=== PATIENT | male | born 1975 | race Caucasian/White ===

== ENCOUNTER 2022-01-22 06:34 | Outpatient (CLI) | payer BC, OTHER ==
[~2022-01-22] VITALS: Ht 170 cm; Wt 125.9 kg
[2022-01-22] MEDS ORDERED: CETI10CA PO (11:33)
[2022-01-22] MEDS ORDERED: CETI10TA17 PO (11:33)
== END 2022-01-22 11:55 ==
LOC: PREOP 06:34
PROVIDERS: ATTEND Surgery
DX: Z01.818 Encounter for other preprocedural examination (principal)

== ENCOUNTER 2022-02-03 12:24 | Day surgery (SDC) | payer BC, OTHER ==
[~2022-02-03] VITALS: Ht 170.2 cm; Wt 125.7 kg
[~2022-02-03 12:24] MED LIST: CETI10CA PO; CETI10TA17 PO
[2022-02-03] MEDS ORDERED: LACTATED RINGERS 1,000 ML IV STA (12:27)
[2022-02-03 12:40] VITALS: BP 142/97
--- NOTE | 2022-02-03 12:57 | Progress Note-Pre Operative ---
Pre-Operative Progress Note H&P Reviewed The H&P was reviewed, patient examined and no changes noted. Date Seen by Provider: Feb 03, 2022 Time Seen by Provider: 12:56 Date H&P Reviewed: Feb 03, 2022 Time H&P Reviewed: 12:56 Pre-Operative Diagnosis: bright red blood per rectum MARIAA MAYNARD DO Feb 03, 2022 12:57
[2022-02-03] MEDS ORDERED: PROPOFOL INJECTION 50 ML IV ONE (13:40)
[2022-02-03 14:15] VITALS: BP 116/73
--- NOTE | 2022-02-03 14:17 | Anesthesia-General Post-Op ---
MAC Patient Condition Mental Status/LOC: Same as Preop Cardiovascular: Satisfactory Nausea/Vomiting: Absent Respiratory: Satisfactory Pain: Controlled Complications: Absent Post Op Complications Complications None Follow Up Care/Instructions Patient Instructions None needed. Anesthesiology Discharge Order Discharge Order Patient is doing well, no complaints, stable vital signs, no apparent adverse anesthesia problems. No complications reported per nursing. MADDISON LI CRNA Feb 03, 2022 14:17
--- NOTE | 2022-02-03 14:17 | Progress Note-Post Operative ---
Post-Operative Progess Note Surgeon (s)/Cold Header (s) Surgeon MARIAA MAYNARD DO Cold Header: na Pre-Operative Diagnosis bright red blood per rectum Post-Operative Diagnosis colon polyps Procedure & Operative Findings Date of Procedure 02/03/22 Procedure Performed/Findings colonoscopy c hot bx polypectomy x 4 Anesthesia Type per account technician Estimated Blood Loss Estimated blood loss (mL): none Specimens/Packing Specimens Removed colon polyps MARIAA MAYNARD DO Feb 03, 2022 14:17
--- NOTE | 2022-02-03 14:18 | Discharge Inst-Simple/Standard ---
Discharge Inst-Standard Patient Instructions/Follow Up Plan of Care/Instructions/FU: 2 weeks Daksha Activity as Tolerated: Yes Discharge Diet: Regular Diet MARIAA MAYNARD DO Feb 03, 2022 14:18
[2022-02-03 14:20] VITALS: BP 128/75
[2022-02-03 14:25] VITALS: BP 122/82
[2022-02-03 14:50] VITALS: BP 151/112
[2022-02-03 14:59] VITALS: BP 151/112
--- NOTE | 2022-02-03 18:37 | OPERATIVE REPORT ---
DATE OF SERVICE: 02/03/2022 PREOPERATIVE DIAGNOSIS: Bright red blood per rectum. POSTOPERATIVE DIAGNOSIS: Colon polyps. PROCEDURES PERFORMED: Colonoscopy with hot biopsy polypectomy x4. SURGEON: Mariaa Crooks DO. ANESTHESIA: Per SEWING MACHINE OPERATOR ZIPPER. ESTIMATED BLOOD LOSS: None. COMPLICATIONS: None. INDICATIONS FOR PROCEDURE: The patient is a 46-year-old male with some bright red blood per rectum. He understands risks and benefits of the procedure and wishes to proceed. Consent was signed in the chart. DESCRIPTION OF PROCEDURE: The patient was taken to the endoscopy suite and placed in the left lateral recumbent position. Timeout was performed. Digital rectal exam was performed. No palpable polyps, masses or ulcerations. Slight hemorrhoidal disease. Scope was inserted in the rectum and advanced all the way to cecum with minimal difficulty. Prep was adequate with irrigation and suction. Scope was slowly retracted back. No polyps, masses or ulcerations within the cecum and ascending colon. In the transverse colon, three small polyps were present, which hot biopsy polypectomy was performed. Scope was then continuously retracted back into the descending colon without any further pathology. Once in the sigmoid, another small polyp was present, which hot biopsy polypectomy was performed. Scope was continuously and retracted back into the rectum, where it was also retroflexed noting no other pathology. Scope was returned to its normal position, slowly withdrawn until completely removed. The patient tolerated the procedure well without any complications. He was taken to recovery room in stable condition. RECOMMENDATIONS: The patient will follow up on pathology in couple of weeks. We will need repeat colonoscopy in five years and depending upon pathology. [facility] was used during evaluation of the colonoscopy. Any issues before next scheduled colonoscopy will need to be reevaluated at that time. Job ID: [id number] DocumentID: [id number] Dictated Date: 02/03/2022 14:20:12 [employer] Mdm Developer Date: 02/03/2022 18:37:08 Dictated By: MARIAA CROOKS DO
== END 2022-02-03 14:55 | disposition home or self-care (01) ==
LOC: ENDO 12:24
PROVIDERS: ATTEND Surgery
DX: K63.5 Polyp of colon (principal); K64.9 Unspecified hemorrhoids; K63.89 Other specified diseases of intestine; E66.01 Morbid (severe) obesity due to excess calories; Z68.41 Body mass index [BMI] 40.0-44.9, adult